=== PATIENT | male | born 1965 | race Caucasian/White ===

== ENCOUNTER 2023-10-29 15:22 | Observation (INO) | payer OTHER, SELFPAY ==
[2023-10-29] VITALS (10 sets, daily range): BP systolic 133–170; BP diastolic 76–99; PULSE 76–85; BMI 31.7
--- NOTE | 2023-10-29 12:44 | ED.GENMED ---
History of Present Illness
General
Chief Complaint: Dizziness
Source: patient
Exam Limitations: none
Time Seen by Provider: 10/29/23 12:12
Nursing documentation reviewed up to this point in time: agreed with
History of Present Illness
History of Present Illness:
58-year-old male presents emergency room complaining of dizziness and difficulty walking for the past 3 days, and confusion. He had a seizure yesterday.
Past History
Past History
ED Past Medical History: Seizures, Hypothyroidism and Other (Cerebral palsy)
ED Past Surgical History: Orthopedic (Left leg surgery)
Social History
Tobacco: Non-smoker
Alcohol: None
Drug: None
Personal:
Review of Systems
Review of Systems
Allergies reviewed?: Yes
All Other Systems: Not applicable
Constitutional: Reports no symptoms
EENT: Reports no symptoms
Respiratory: Reports no symptoms
Cardiac: Reports no symptoms
ABD/GI: Reports no symptoms
: Reports no symptoms
Musculoskeletal: Reports no symptoms
Skin: Reports no symptoms
Neurological: Reports dizzy
Endocrine: Reports no symptoms
Hematologic/Lymphatic: Reports no symptoms
Psychiatric: Reports no symptoms
Phy Exam
Physical Exam
Physical Exam:
Physical Exam
General: no apparent distress, not acutely ill
Neck: supple. no meningeal signs. normal posterior pharynx
Heart: s1/s2 regular rate and rhythm, no murmur. equal radial
pulses.
HEENT: Pupils equal round reactive to light, EOMI
Lungs: no acute respiratory distress. clear bilaterally
Abdomen: normal bowel sounds. not tender. no CVAT
Neuro: alert and oriented to place and year, but not month. no focal neurological deficits cranial nerves II through XII intact
Skin: no rash
Psychiatric: well kept. interactive and cooperative
Extremities: no edema. no calf tenderness. negative homans. good distal pulses
Course
Orders/Labs/Results
Orders:
Orders
10/29/23 Breakfast
Regular
At Your Request: Full Participation
Does patient need a safe tray?: No
10/29/23 12:42
Electrocardiogram (*1) Stat
Reason for Study: Vertigo / Dizzy
CT Head W/o Iv Contrast Urgent
Comment:
Reason For Exam: confusion, difficulty walking, confusion
EKG- Treatment ONCE
10/29/23 12:43
Electrocardiogram (*1) Urgent
10/29/23 12:44
Urinalysis Reflex To Culture Urgent
10/29/23 12:56
Complete Blood Count/With Diff Urgent
Comprehensive Metabolic Panel Urgent
Erythrocyte Sed Rate Urgent
Comment: ADD ON
Ferritin Urgent
Comment: ADD ON
Folate Urgent
Comment: ADD ON
Magnesium Urgent
Comment: ADD ON
TSH Reflex To Free T4 Urgent
Comment: ADD ON
Vitamin B12 Urgent
Comment: ADD ON
10/29/23 14:56
Admit/Transfer Patient As Directed
Co-Sign Provider:
Level of Care: Observation services
Assign to:: Telemetry
Physician / Group: Ish Hay
Diagnosis: Ataxia
Reason for Telemetry: CVA/TIA
Date to Stop Telemetry: 11/01/23
Time to Stop Telemetry: 11:00
10/29/23 14:57
Code Status As Directed
Resuscitation Status: Full Code
PRN Pain Medication Management As Directed
May give lesser potent ordered pain med per pt: Yes
preference::
Protocol:: Medication orders for pain may be administered in a
manner that supports deferring to patient preference
when the pt is:
- Requesting an ordered lesser potent pain medication.
Least to most potent pain medications are defined
as: acetaminophen < NSAID < tramadol < opioids
(morphine, oxycodone, hydromorphone).
- Requesting a lesser dose of the same medication IF
ORDERED.
- Requesting a less intrusive route of administration
if both routes are prescribed by the provider (PO <
IV).
10/29/23 15:00
Aspirin Chewable [Low Strength Aspirin] 81 mg PO NOW STA
10/29/23 15:02
Add On- LAB Routine
Comments:: Please add to today's labs or draw as routine
Tests Added?: TSH reflex, Ferritin, Folate, Vit. B12, ESR
10/29/23 15:04
Add On- LAB Urgent
Tests Added?: Mg level
10/29/23 15:04
NEUROLOGY CONSULT Routine
Consulting Provider: Buddy Bryant
Was physician already notified: Yes
10/29/23 15:05
Lamotrigine (Lamictal) [S] Routine
Comment: May add to blood in lab
10/29/23 15:10
Obtain Records As Directed
Dates of Information to be Released: all
Type of Information Requested: Entire Record
Obtain Records from: Dr. Silas Tejeda, neurologist
10/29/23 16:04
COVID-19 Antigen Stat
Source: Nasal Swab
10/29/23 16:50
Acetaminophen [Tylenol/Feverall] 650 mg RECTAL Q4HPRN PRN
Acetaminophen [Tylenol] 650 mg PO Q4HPRN PRN
10/29/23 16:50
Case Management Consult ONCE
Case Management Consult: Discharge Planning
Comment: stroke/tia
DIETARY CONSULT Routine
Reason for Consult: stroke/TIA
Global Director [employer] Routine
MR Brain Without Contrast Routine
Comment:
Reason For Exam: stroke/TIA
Recent pill cam endoscopy?: No
Activity As Directed
Activity Level: Out of Bed-Early Mobility
NIH Stroke Scale As Directed
Directions: Per protocol
Comment: every shift and with any change in condition or mental status
Neurological Checks As Directed
Frequency: q4h
Additional Instructions:: q4h x 24h upon admission to the floor, then qshift & with any change in condition
and mental status
Orthostatic Vital Signs As Directed
Orthostatic VS Frequency: Daily
Patient Education As Directed
Type: Stroke education packet
Comment: provide to patient and family
Pneumatic Compression Sleeves As Directed
Type: Knee high
Vital Signs As Directed
Frequency: Per unit guidelines
Ot Eval And Treat Routine
Pt Eval And Treat Routine
Activity Level: Out of Bed-Early Mobility
With Assistance
Speech Therapy Eval & Treat Routine
DX Deep Vein Thrombosis Video Routine
10/29/23 22:00
Lamotrigine [Lamictal] 500 mg PO HS
10/30/23 06:00
Basic Metabolic Panel IN AM
Cardiovascular Evaluation IN AM
Complete Blood Count/No Diff IN AM
Glycohemoglobin (HgbA1c) IN AM
Magnesium IN AM
TSH Reflex To Free T4 IN AM
Levothyroxine [Synthroid] 25 mcg PO DAILY@0600
10/30/23 08:00
Aspirin Chewable [Low Strength Aspirin] 81 mg PO DAILY
Lamotrigine [Lamictal] 300 mg PO DAILY
10/30/23 12:00
Lamotrigine [Lamictal] 100 mg PO NOON
11/01/23 11:00
DC Protocol for Telemetry ONCE
Abnormal Lab Results
10/29/23
12:56
RBC 4.50 L 10^6/uL
(4.70-6.10)
MCH 33.1 H pg
(27.0-31.0)
Absolute Monos (auto) 0.9 H 10^3/uL
(0.1-0.6)
Monocytes % 11.8 H %
(1.7-9.3)
Glucose 109 H mg/dl
(70-99)
Alkaline Phosphatase 144 H U/L
(38-126)
10/29/23 12:56
10/29/23 12:56
Vital Signs
Initial and Last Documented VS:
Initial Vital Signs
Temp Pulse Resp BP Pulse Ox
98.1 F 99 18 152/95 94
10/29/23 11:13 10/29/23 11:13 10/29/23 11:13 10/29/23 11:13 10/29/23 11:13
Last Documented Vital Signs
Temp Pulse Resp BP Pulse Ox
97.8 F 84 18 143/82 94
10/29/23 16:58 10/29/23 16:58 10/29/23 16:58 10/29/23 16:58 10/29/23 16:58
MDM/Problems Addressed
Differential Diagnosis Includes:
CVA, seizures
MDM/Problems Addressed:
58-year-old male with ataxia, possible TIA versus CVA. No current neurologic deficits. Admit to hospitalist.
Chronic conditions affecting care: Neurological disorder (Epilepsy)
*Radiology
Radiology exam reviewed: radiology read reviewed (CT head no acute findings)
*Pulse Oximetry
Patient hypoxic: no
*EKG
Interpreted by ED Provider?: Yes
EKG Intrepretation Date: 10/29/23
EKG Intrepretation Time: 13:25
Interpretation: abnormal
Comparison EKG: no comparison EKG present
Heart Rate: 81
Rate: normal
Rhythm: sinus and sinus arrhythmia
Penryn: normal axis
Interval: normal interval
QRS Pattern: normal QRS
Ischemia: no ischemia
*You[employer] Services Specialist Interpretation
Rate: normal
Interpretation: normal
Heart Rate: 80
Rhythm: sinus
*Critical Care Note
Total Time (30-74mins, 75-104mins- exclusive of procedures): Not Applicable
Patient Management
Social determinants of health affecting care: Living situation
Escalation/DeEscalation of care consider admission/obs:
Admit indicated
ED Attending Note
-
Portions of this chart may have been created with voice recognition software.� Occasional wrong word or��sound alike� substitutions may have occurred due to the inherent limitations of voice recognition software.
Discharge Plan
Departure
Patient Disposition: Admit
Date of Disposition: 10/29/23
Time of Disposition: 14:12
Admit to: Telemetry
Presentation/result/management discussed w/ accepting MD/DO: Hospitalist
Patient with high blood pressure during this ER visit?: Yes
Condition: Fair
Discharge Problem:
Ataxia, Acute alteration in mental status
Interventions
Interventions:
*Risk Screen - Suicide Last Done: 10/29/23 11:13
*General Assessment Last Done: 10/29/23 11:13
*Neglect/Abuse Screening Last Done: 10/29/23 11:13
ED- Fall Risk Assessment Last Done: 10/29/23 16:36
*ED COVID-19 Vaccine History Last Done: 10/29/23 13:30
*Nursing Disposition Last Done: 10/29/23 16:36
ED- Neurological Assessment Last Done: 10/29/23 16:07
ED- Cardiac Assessment Last Done: 10/29/23 16:36
ED Swallowing Screen Last Done: 10/29/23 16:07
Discharge Date and Time
Discharge Date/Time: 10/29/23 16:45
[2023-10-29 13:22] LABS: % Basophils 0.3 % (0-2); % Eosinophils 0.3 % (0-6); % Immature Granulocytes 0.4 % (0-0.5); % Lymphocytes 20.5 % (20.5-51.1); % Monocytes 11.8 % (1.7-9.3); % Neutrophils 66.7 % (42.2-75.2); Absolute Lymphocytes 1.6 10^3/uL (1.2-3.4); Absolute Monocytes 0.9 10^3/uL (0.1-0.6); Absolute Neutrophils 5.1 10^3/uL (1.4-6.5); Hematocrit 41.5 % (39.0-52.0); Hemoglobin 14.9 g/dL (13.0-18.0); Mean Corp Hgb Conc. 35.9 g/dL (33.0-37.0); Mean Corpuscular Hgb 33.1 pg (27.0-31.0); Mean Corpuscular Volume 92.2 fL (80.0-94.0); Mean Platelet Volume 9.9 fL (7.4-10.4); Nucleated Red Blood Cells % 0 % (-); Platelet Count 246 10^3/uL (130-400); Red Cell Dist. Width 12.5 % (11.5-14.5); White Blood Cell Count 7.6 10^3/uL (4.8-10.8)
[2023-10-29 13:33] LABS: ALT (SGPT) 25 U/L (0-50); AST (SGOT) 39 U/L (17-59); Albumin 4.1 g/dl (3.5-5.0); Alkaline Phosphatase 144 U/L (38-126); Blood Urea Nitrogen 14 mg/dl (9-20); Calcium 9.2 mg/dl (8.4-10.2); Carbon Dioxide 23 mmol/L (22-30); Chloride 107 mmol/L (98-107); Glucose 109 mg/dl (70-99); Potassium 3.9 mmol/L (3.5-5.1); Sodium 137 mmol/L (135-145); Total Bilirubin 0.5 mg/dl (0.2-1.3); Total Protein 6.7 g/dl (6.3-8.2); eGFR > 60.00
--- NOTE | 2023-10-29 14:57 | CON.NEURO ---
Neuro Assessment/Plan
Assessment
IMPRESSIONS/RECOMMENDATIONS:
Abrupt onset of unsteadiness
Patient is described as having cognitive issues in 2021 for which MRI of the brain was performed. No acute changes were demonstrated by the test which was ordered by a local neurologist.
Plan
Obtain blood work to determine if there is a metabolic cause such as the patient's known thyroid disease
We will follow MRI of brain results
Okay to initiate aspirin 81 mg daily
obtain records from local neurologist
formal neuropsychological testing may be necessary as outpatient
check new EEG > 1 hour study
outpatient sleep testing would likely be of assistance
Rehabilitation evaluation
Will continue to follow patient. Thank you.
Consultation
Order
Date of Consultation: 10/29/23
Requesting Provider: Hospitalist
Reason for Consult: Ataxia
Subjective/Objective
Subjective Data
Date of Service: October 29, 2023
Left-Handed
Dizziness started 1 day ago with mild intensity of symptoms while walking, difficulty with ambulating, improved with eating after 45 minutes.
Quality of event is an apraxia of ambulation. No headache. No bowel or bladder or tongue biting.
Today, had an episode during urination at 08:00 developed sudden onset of inability to walk leading to patient crawling back to bed. No syncope. Continued inability to ambulate since onset of symptoms.
Usually seen by local neurologist for seizures disorder. No recent changes in medication doses.
Travelled last night across several states.
Seizures started in childhood then stopped age 5 years.
Re-started in 2005, with worsening over time. Seizure phenotypes include staring and expletive use then return to usual activities immediately. No generalize tonic clonic
Prior medications Lamotrigine, and Lacosamide 200 mg BID.
Seizure frequency up to 60 seconds. Last seizure today. Usual frequency of seizures is 2 per day, although unclear.
Confusion present usually, according to family, worsening over the last 5 years (since 2019) with word finding difficulty and sentence creation reduced. MRI of brain performed in 2021 without acute changes. Last EEG in 2021 which was described as
'unchanged.'
Objective Data
Vital Signs
Temp Pulse Resp BP Pulse Ox
36.7 C 84 12 170/96 95
10/29/23 11:13 10/29/23 13:00 10/29/23 13:00 10/29/23 13:19 10/29/23 13:19
Lab Results
10/29/23 12:56
10/29/23 12:56
Sodium 137 mmol/L (135-145) 10/29/23 12:56
Potassium 3.9 mmol/L (3.5-5.1) 10/29/23 12:56
BUN 14 mg/dl (9-20) 10/29/23 12:56
Glucose 109 mg/dl (70-99) H 10/29/23 12:56
Calcium 9.2 mg/dl (8.4-10.2) 10/29/23 12:56
Patient Allergies
No Known Allergies Allergy (Verified 10/29/23 11:13)
Review of Systems
-
History Source: Patient
All other systems: Reviewed and negative
Constitutional: Sleep Disturbance (awakening 4x/night)
EENT: Negative Decreased Vision or Swallowing Difficulty
Respiratory: Negative Trouble Breathing
Cardiac: Negative Chest Pain
Abdomen/GI: Negative Incontinence of Stool
Genitourinary: Negative Incontinence
Musculoskeletal: Negative Back Pain or Neck Pain
Neuro: Weakness (on the right side) and Other (memory loss); Negative Dizzy or Headache
Physical Exam
-
General: No Apparent Distress and Appears Stated Age
Eyes: OU Absent Papilledema, Round OU, Acton Conjunctivae and No Ptosis
HEENT: Anicteric and Moist Mucous Membranes
Neck: Full Range of Motion
Respiratory: No Dyspnea
Cardiac: No JVD
GI: Non-distended
Skin: Unremarkable
Extremities: No Clubbing, No Cyanosis and No Edema
Psych: Negative Intact Judgement/Insight
Extended Neurological Exam
Mood & Affect: Negative Affect Unremarkable (Mildly irritable)
Attention Span & Concentration: Awake, Alert, Interactive and Moderate Difficulty with 2 Step Request
Memory: Able to Recall (Recent events) and Unable to Recall Personal History (In its entirety)
Tremor: Hand Tremor Absent and Head Tremor Absent
Involuntary Movement: None
Speech: Quality Unremarkable and Quantity Unremarkable
Cranial Nerve II: Left Eye: Pupillary Reactivity Unremarkable, Pupillary Size Unremarkable and Visual Stearns Reduced (Right-sided visual field)
Cranial Nerve II: Right Eye: Pupillary Reactivity Unremarkable, Pupillary Size Unremarkable and Visual Stearns Reduced (Right-sided visual field)
Cranial Nerves III, IV, : Extraocular Movement: Extraocular Movement Full in all Directions
Cranial Nerve V: Facial Sensation: Facial Sensation Unremarkable to Cold
Cranial Nerve VII: Facial Symmetry: Normal Facial Symmetry
Cranial Nerve VIII: Hearing: Unremarkable Hearing to Normal Conversational Volume
Cranial Nerves IX, X: Palate Movement: Deviation to Left
Cranial Nerve XI: Shoulder Shrug: Reduced on Right (Minimally)
Cranial Nerve XII: Tongue Protusion: Midline
Muscle Bulk & Tone: Decreased Bulk (Mildly in the right upper extremity distally greater than proximally) and Increased Tone (Right upper extremity greater than right lower extremity)
Pronator Drift: No Drift in Upper Extremities
Deep Tendon Reflexes: Trace Throughout
Cold Sensation: Reduced Moderately Distally
Vibration Sensation: Reduced Moderately Distally
Touch Sensation: Unremarkable
Coordination: [id number] Testing Unremarkable and Qzrq-[id number] movements intact bilaterally
Babinski Sign: Absent Bilaterally
Data Reviewed
-
CT Head: Report Reviewed
MRI Head: Report Reviewed (from 03/2021, 1. 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
which is secondary to a chronic complete occlusion of the proximal left middle ce)
Labs: Report Reviewed
Lipid Profile: Ordered
Reviewed with: Physician, Physician Bean Picker, Patient and Family
Old Records: Summarized
Medications
-
Home Medications
�Medication �Instructions �Recorded
lamotrigine 200 mg tablet 100 mg PO NOON 10/29/23
lamotrigine 200 mg tablet 300 mg PO DAILY 10/29/23
lamotrigine 200 mg tablet 500 mg PO HS 10/29/23
levothyroxine 25 mcg tablet 25 mcg PO DAILY 10/29/23
Past History
Past History
ED Past Medical History: Seizures, Hypothyroidism and Other (Cerebral palsy)
ED Past Surgical History: Orthopedic (Left leg surgery)
Social History
Tobacco: Non-smoker
Alcohol: None
Drug: None
Personal:
Family History
Family History: Other
--- NOTE | 2023-10-29 15:02 | HPS.HSE ---
Addendum entered and electronically signed by Ish Hay MD 10/29/23 15:29:
58-year-old male with a past medical history of cerebral palsy, seizure disorder on Lamictal, and hypothyroidism presents with a 2-day history of intermittent difficulty walking. He denies focal weakness, denies dysarthria, denies dysphagia. No
headache, no vision changes. He states yesterday, he had difficulty walking, and it resolved with eating. Today he notices difficulty walking with waking up, and it is persistent despite eating. He did have some nausea, vomiting, and diarrhea on
Monday/2 days ago. This is all since resolved. Family reports that patient has frequent seizure activity, lasting 30 to 60 seconds, last one was at 12 PM today. He does not have any postictal sequelae afterwards.
Head CT shows stable encephalomalacia and left lateral ventricle dilatation consistent with old left MCA infarct.
Will start aspirin 81 mg daily, consult neurology, check brain MRI, consult PT/OT, order stroke workup, consider EEG.
I have personally seen and examined the patient, and agree with the plan of care as documented by Nayana Menendez PA-C.
Advance care planning discussed, patient is a full code.
All other issues as outlined by the advanced care practitioner.
Original Note:
Family Physician
-
Family Physician: Beka Harden
Chief Complaint
-
Difficulty Ambulating
History of Present Illness
Patient is a 58 y/o male past medical history of cerebral palsy, seizure disorder and hypothyroidism who presents with difficulty ambulating. Patient states yesterday he an episode yesterday where he was having difficulty ambulating. He reports
symptoms lasted for about 45 min then resolved. Last night he was back to baseline but this morning upon wakening symptoms had returned. He describes difficulty ambulating due to balance. He denies lightheadedness or vertigo. He denies focal
numbness, tingling/weakness.
Medical History
Past Medical History
Past Medical History: Reports Other
Additional Past Medical History:
Cerebral Palsy
Seizure Disorder
Hypothyroidism
Past Surgical History: Reports Other
Additional Past Surgical History:
Left Leg Surgery
Right Heel Surgery
Social History
Tobacco: Non-smoker
Alcohol: None
Living: Alone
Family History
Family History: Not pertinent
Allergies / Home Medications
Allergies reflects when Allergies were last updated in [facility].
Home Medications with original date entered in [facility]
Allergy/Medication List:
Allergies
Allergy/AdvReac Type Severity Reaction Status Date / Time
No Known Allergies Allergy Verified 10/29/23 11:13
Home Medications
lamotrigine 200 mg tablet 100 mg PO NOON 10/29/23
lamotrigine 200 mg tablet 300 mg PO DAILY 10/29/23
lamotrigine 200 mg tablet 500 mg PO HS 10/29/23
levothyroxine 25 mcg tablet 25 mcg PO DAILY 10/29/23
Review of Systems
-
A 12 point ROS was completed and negative except as noted: Yes
Constitutional: Denies Fever or Chills
Respiratory: Denies Cough or Trouble Breathing
Cardiac: Denies Chest Pain or Palpitations
Abdomen/GI: Reports Diarrhea (A few days ago which has resolved)
Neurological: Reports See HPI
Physical Exam
Vital Signs
Vital Signs
Temp Pulse Resp BP Pulse Ox
98.1 F 84 12 170/96 95
10/29/23 11:13 10/29/23 13:00 10/29/23 13:00 10/29/23 13:19 10/29/23 13:19
Physical Exam
General: Comfortable and Conversant
HEENT: Anicteric, Moist mucous membranes and PERRLA
Respiratory: Clear and Non Labored Respirations
Cardiac: S1/S2 and Regular Rhythm; No Murmur
GI: Soft, Non Tender and Non Distended
Rectal: Deferred by Provider
Musculoskeletal: No Clubbing, No Cyanosis and No Edema
Skin: Warm and Dry
Neuro: Awake, Alert, Oriented and Other (Chronic contractures of right hand and foot; Difficulty performing finger to nose testing)
Psych: Calm
Laboratory Results
-
10/29/23 12:56
10/29/23 12:56
Laboratory Results
Total Bilirubin 0.5 mg/dl (0.2-1.3) 10/29/23 12:56
AST 39 U/L (17-59) 10/29/23 12:56
ALT 25 U/L (0-50) 10/29/23 12:56
Alkaline Phosphatase 144 U/L (38-126) H 10/29/23 12:56
Data Reviewed
-
CT Scan: Report Reviewed by me
Lab Data: Labs Reviewed by me
Old Records: Reviewed
Impression/Plan
-
Ataxia
-Consult Neurology
-Consult PT/OT
-Check Brain MRI
-Consider EEG - Defer to Neurology
-Start Aspirin
Seizure Disorder
-Continue lamotrigine
Hypothyroidism
-Continue levothyroxine
DVT proph: SCDs
Code Status: Full Code
[2023-10-29 16:04] LABS: Erythrocyte Sed Rate 15 mm/hour (0-20)
[2023-10-29] MEDS: LOW STRENGTH ASPIRIN 81 MG PO (16:05)
[2023-10-29 16:15] LABS: Magnesium 2.1 mg/dl (1.6-2.3)
[2023-10-29 16:31] LABS: COVID-19 Antigen Negative (Negative)
[2023-10-29 17:16] LABS: TSH Reflex To Free T4 1.37 uIU/ml (0.47-4.68)
[2023-10-29 17:20] LABS: Ferritin 70.6 ng/ml (17.9-464.0)
[2023-10-29 17:51] LABS: Folate 15.2 ng/ml (2.76-20); Vitamin B12 593 pg/ml (239-931)
--- NOTE | 2023-10-29 18:00 | PTCARENOTE ---
Patient admitted in to room 415-1. Sister at bedside. NIH score of 2 for mild aphasia and facial droop (noted to be preexisting r/t to CP dx). No weakness or axtia noted on exam. Patient oriented to unit and call leggett, instructed to ring for
assistance--patient agreeable. Med rec completed--Lamotrigine frequency and dosage clarified with livestock commission agent from Dr Tejeda's office. Dr. Hay and Dr. Bryant notified.
[2023-10-29] MEDS: LAMICTAL 500 MG PO (21:00)
[2023-10-30 02:52] VITALS: BP 129/61
[2023-10-30 03:10] VITALS: BP 129/61
[2023-10-30] MEDS: SYNTHROID 25 MCG PO (05:46)
[2023-10-30 07:15] VITALS: BP 126/69; BP 136/85; BP 151/84; PULSE 72; PULSE 76; PULSE 83
[2023-10-30 07:26] LABS: Hematocrit 44.7 % (39.0-52.0); Hemoglobin 16.1 g/dL (13.0-18.0); Mean Corpuscular Hgb 33.1 pg (27.0-31.0); Mean Corpuscular Volume 91.8 fL (80.0-94.0); Mean Platelet Volume 9.7 fL (7.4-10.4); Platelet Count 246 10^3/uL (130-400); Red Blood Cell Count 4.87 10^6/uL (4.70-6.10); Red Cell Dist. Width 12.6 % (11.5-14.5)
[2023-10-30 07:37] LABS: Urine Albumin Negative (Neg - Trace); Urine Bilirubin Negative (Negative); Urine Character Clear (Clear); Urine Color Yellow; Urine Glucose Negative (Negative); Urine Ketone Negative (Negative); Urine Leukocyte Negative (Negative); Urine Nitrite Negative (Negative); Urine Occult Blood Trace (Negative); Urine Urobilinogen Negative (Neg - 1+)
[2023-10-30] MEDS: LOW STRENGTH ASPIRIN 81 MG PO (07:42)
[2023-10-30] MEDS: LAMICTAL 300 MG PO (07:42)
[2023-10-30 08:12] LABS: Blood Urea Nitrogen 13 mg/dl (9-20); Calcium 9.4 mg/dl (8.4-10.2); Carbon Dioxide 25 mmol/L (22-30); Chloride 106 mmol/L (98-107); Estimated Creatinine Clearance 106 ml/min; Glucose 92 mg/dl (70-99); HDL Cholesterol 49 mg/dl; LDL Cholesterol, Calculated 58 mg/dl; Magnesium 2.3 mg/dl (1.6-2.3); Potassium 4.1 mmol/L (3.5-5.1); Sodium 140 mmol/L (135-145); Total Cholesterol 121 mg/dl (50-199); Triglyceride 74 mg/dl (10-149); Very Low Density Lipoprotein 14 mg/dl (0-30); eGFR > 60.00
[2023-10-30 08:26] LABS: Urine Hyaline Cast 0-2 /LPF (0-2); Urine Red Blood Cell 0-2 /HPF (0-2)
[2023-10-30 08:33] LABS: TSH Reflex To Free T4 2.75 uIU/ml (0.47-4.68)
[2023-10-30 10:56] LABS: Glycohemoglobin (HgbA1c) 5.1 % (4.0-5.6)
[2023-10-30 11:23] VITALS: BP 141/75
--- NOTE | 2023-10-30 11:34 | CM ---
Patient seen in chair eating, sister visiting, initial assessment completed. Patient resides independently in a single story home, 3-4 steps to enter. Patient reports he has good support nearby if needed Patient denies the use of DME, denies VN or
SNF history. Patient reports PCP Dr. Narvaez, [facility], pharmacy [facility] in [place], confirms prescription coverage. Patient denies food, housing/utility, transportation insecurities at home. CM reviewed STEVEN form, signed, placed in
chart. CM will watch for PT/OT evaluations, will continue to follow for all discharge planning needs.
Plan; home no needs vs VN, watch for PT/OT evals.
[2023-10-30 12:14] VITALS: BP 146/80; PULSE 87; O2SAT 97
--- NOTE | 2023-10-30 12:20 | PTOTSP ---
pt currently requires supervision to no assistance to complete simple ADLs, functional transfers, ambulation. pt appears close to baseline, demonstrates no acute OT needs. will sign off.
--- NOTE | 2023-10-30 12:35 | EEG.RPT ---
Electroencephalogram Report
Recording
Date of EE10/30/23
Type of EEG: Routine
Length of EEG recordin minutes
Done with Video Recording: Yes
Patient Status: Inpatient
Recording Conditions: Awake and Drowsy
Hyperventilation Performed: Yes
Photic Stimulation Performed: Yes
Report
GREATER THAN 1 HOUR EEG REPORT
EEG INTERPRETATION:
Unremarkable EEG for age
CLINICAL CORRELATION:
A normal EEG does not rule out a diagnosis of epilepsy. If clinical suspicion for seizure persists, a prolonged recording may be warranted.
Clinical correlation is advised.
METHODS:
A 21 channel digitized electroencephalogram (EEG) was performed in the Clinical Neurophysiology Laboratory. The 10/20 international system of electrode placement was used with ECG and lateral/vertical eye movements recorded. Persyst quantitative EEG
analysis was performed.
ELECTROENCEPHALOGRAPHER IMPRESSION(S):
Quality of study
Good
Background
Unremarkable, well maintained, medium amplitude alpha-frequency and unremarkable anterior-posterior voltage gradient
With eye opening the background activity changed to a low voltage mixture of frequencies.
Sleep
Drowsiness present
Hyperventilation
Did not activate the record
Photic Stimulation
Did not activate the record
ECG
Normal sinus rhythm
[2023-10-30] MEDS: LAMICTAL 100 MG PO (13:15)
--- NOTE | 2023-10-30 13:50 | PTOTSP ---
The patient is independent with ambulation and elevations, reports he is back to his baseline and offered no concerns regarding mobility upon return home. No PT needs identified at this time, will sign off.
--- NOTE | 2023-10-30 14:24 | W.PN.NEURO.1 ---
Today's Communication / Plan
-
Pat may be discharged on current AEDs: Vimpat 200 mg BID. Lamictal 300mg AM and 500mg PM
Neuro Assessment/Plan
Assessment
58 yr. old male with h/o CP seizure d/o admitted with breakthrough seizure and lethargy
IMPRESSIONS/RECOMMENDATIONS:
Seizure d/o
Gait apraxia
Plan
Vimpat 200 mg BID
Lamictal 300mg AM and 500mg PM.
Seizure precautions
Subjective/Objective
Subjective Data
Date of Service: October 30, 2023
Pat remains seizure free following admission despite being on Lamictal alone
Objective Data
Vital Signs
Temp Pulse Resp BP Pulse Ox
36.4 C 77 17 141/75 98
10/30/23 11:23 10/30/23 11:23 10/30/23 11:23 10/30/23 11:23 10/30/23 11:23
Lab Results
10/30/23 07:09
10/30/23 07:09
Sodium 140 mmol/L (135-145) 10/30/23 07:09
Potassium 4.1 mmol/L (3.5-5.1) 10/30/23 07:09
BUN 13 mg/dl (9-20) 10/30/23 07:09
Glucose 92 mg/dl (70-99) 10/30/23 07:09
Calcium 9.4 mg/dl (8.4-10.2) 10/30/23 07:09
LDL Cholesterol, Calc 58 mg/dl 10/30/23 07:09
Vitamin B12 593 pg/ml (239-931) 10/29/23 12:56
Patient Allergies
No Known Allergies Allergy (Verified 10/29/23 17:43)
Physical Exam
-
General: Well Nourished and No Apparent Distress
Eyes: Able to visualize OU
HEENT: Normocephalic and Atraumatic
Neck: Limited Range of Motion
Respiratory: Clear to Auscultation
Cardiac: Regular Rhythm and No Murmur
GI: Normal Bowel Sounds, Soft, Non-tender and Non-distended
Skin: Unremarkable, Warm and Dry
Extremities: No Clubbing, No Cyanosis and No Edema
Psych: Confused and Anxious
Extended Neurological Exam
Mood & Affect: Anxious
Attention Span & Concentration: Awake, Alert, Interactive and No Difficulty with 2 Step Request
Involuntary Movement: Other
Speech: Dysarthric, Variable and Pressured
Cranial Nerve II: Left Eye: Pupillary Reactivity Unremarkable, Pupillary Size Unremarkable and Visual Stearns Grossly Intact
Cranial Nerve II: Right Eye: Pupillary Reactivity Unremarkable and Pupillary Size Unremarkable
Cranial Nerves III, IV, : Extraocular Movement: Extraocular Movement Full in all Directions
Cranial Nerve V: Facial Sensation: Unable to Assess
Cranial Nerve VII: Facial Symmetry: Other (Cerebral palsy with facial asymmetry)
Cranial Nerve VIII: Hearing: Unremarkable Hearing to Normal Conversational Volume
Cranial Nerves IX, X: Palate Movement: Palate Elevation Symmetric
Cranial Nerve XI: Shoulder Shrug: Unable to Assess
Cranial Nerve XII: Tongue Protusion: Midline
Muscle Strength, Overall: Reduced on Right
Muscle Bulk & Tone: Decreased Bulk and Increased Tone
Pronator Drift: Drift in Right Upper Extremity
Deep Tendon Reflexes: 3+
Cold Sensation: Reduced Mildly Distally
Vibration Sensation: Reduced Mildly Distally
Babinski Sign: Present Bilaterally
Gait & Station: Romberg Test Positive
[2023-10-30 15:06] VITALS: BP 134/85
--- NOTE | 2023-10-30 15:24 | W.PN.HOSP.TC ---
Today's Communication/Plan
-
Follow-up EEG
Discharge
Assessment / Plan
Assessment / Plan
#Ataxia/disequilibrium
-MRI brain without signs of CVA, EEG today without signs of ongoing seizure activity
-Will discharge home on previous antiepileptic regimen with outpatient neurological follow-up
#Seizure Disorder
-Very low suspicion that presenting symptoms were related to any seizure activity
-Home regimen includes lacosamide 20 mg twice daily, lamotrigine 300 mg a.m./500 mg p.m.
-Appears stable
#Hypothyroidism
-Continue levothyroxine
DVT: SCDs
Code Status: Full Code
Anticipated Discharge: Today
Subjective/Interval History
-
Date of Service: October 30, 2023
Seen and examined at the bedside. No acute events overnight. He just returned from EEG, spoke with neurology who states there was no seizure activity seen. Patient stable for discharge back onto home antiepileptic regimen of lacosamide 200 mg
twice daily, lamotrigine 300 mg in the morning, lamotrigine 500 mg in the evening.
His uncle was at the bedside and I answered all questions
Objective Data
-
Labs:
Laboratory Results
10/30/23
07:09
WBC 6.0
Hgb 16.1
Hct 44.7
Plt Count 246
Sodium 140
Potassium 4.1
Chloride 106
Carbon Dioxide 25
BUN 13
Creatinine 0.9
Glucose 92
Calcium 9.4
Vital Signs:
Vital Signs
Temp Pulse Resp BP Pulse Ox
98.0 F 76 17 134/85 98
10/30/23 15:06 10/30/23 15:06 10/30/23 15:06 10/30/23 15:06 10/30/23 15:06
I&O
10/29/23 10/30/2324
06:59 06:59 06:59
Intake Total 480 / 480
Balance 480 / 480
Review of Systems
-
History Source: Patient
Constitutional: Reports No Symptoms
EENT: Reports No Symptoms Reported
Respiratory: Reports No Symptoms
Cardiac: Reports No Symptoms
Abdomen/GI: Reports No Symptoms
Genitourinary: Reports No Symptoms
Musculoskeletal: Reports No Symptoms
Skin: Reports No Symptoms
Neuro: Reports No Symptoms
Physical Exam
-
General: Well Developed and Well Nourished
HEENT: Normocephalic, Atraumatic and Moist Mucous Membranes
Respiratory: Clear to Auscultation and Non Labored Respirations; Negative Wheezes, Rales or Rhonchi
Cardiac: Regular Rhythm and S1/S2; Negative Murmur or Rub
GI: Soft, Nontender, Nondistended and Normal Bowel Sounds
Musculoskeletal: No Clubbing, No Cyanosis and No Edema
Skin: Warm and Dry; Negative Rash
Neuro: AO x 3, Nonfocal/Grossly Intact and Central Nerve's Intact
Data Reviewed
-
CT Scan: Report Reviewed by me
Medical Tests (Nuc Med, Echo etc): Discussed with Physician
Labs: Discussed with Patient
[2023-10-30] MEDS: VIMPAT 200 MG PO (16:06)
[2023-11-01 00:33] LABS: Lamotrigine (Lamictal) 16.3 ug/mL (3.0-15.0)
== END 2023-10-30 16:59 | disposition home or self-care (01) ==
LOC: 4 WEST ACU 15:22
PROVIDERS: Physician Assistant Medical; ADMITTING PHYSICIAN Family Medicine; ATTENDING PHYSICIAN Internal Medicine; CONSULT PHYSICIAN Psychiatry & Neurology Neurology; EMERGENCY PHYSICIAN Emergency Medicine; FAMILY PHYSICIAN Internal Medicine
DX: R42 Dizziness and giddiness (principal); G80.8 Other cerebral palsy; R41.0 Disorientation, unspecified; E03.9 Hypothyroidism, unspecified; R26.2 Difficulty in walking, not elsewhere classified; G40.909 Epilepsy, unspecified, not intractable, without status epilepticus; R41.89 Other symptoms and signs involving cognitive functions and awareness; G93.89 Other specified disorders of brain; R48.2 Apraxia; Z79.890 Hormone replacement therapy; Z86.73 Personal history of transient ischemic attack (TIA), and cerebral infarction without residual deficits; Z11.52 Encounter for screening for COVID-19
CPT/HCPCS: 70450; 70551; 80048; 80053; 80061; 80175; 81003; 81015; 82607; 82728; 82746; 83036; 83735; 84443; 85025; 85027; 85652; 87811; 93005; 95813; 97161; 97165; 99285; G0378